=== PATIENT | male | born 1975 | race Caucasian/White ===

== ENCOUNTER 2016-09-07 05:37 | Emergency (ER) | payer OTHER ==
[~2016-09-07 05:37] MED LIST: CLEOCIN HCL300 MG PO; NORCO 10-325 T1 EACH PO
== END 2016-09-07 10:30 | disposition home or self-care (01) ==
LOC: ER1 05:37
DX: J84.112 Idiopathic pulmonary fibrosis (principal); R06.02 Shortness of breath
CPT/HCPCS: 96372; 99283; J1885

== ENCOUNTER 2016-09-12 09:27 | Emergency (ER) | payer OTHER ==
[2016-09-12 10:18] LABS: HEMOGLOBIN 11.7 gm/dl (14.0-17.5); RED BLOOD COUNT 4.27 M/UL (4.20-5.50); WHITE BLOOD COUNT 10.6 K/UL (4.5-11.0)
[2016-09-12 11:09] LABS: BUN/CREATININE RATIO 17 (0-10)
== END 2016-09-12 17:30 | disposition home or self-care (01) ==
LOC: ER1 09:27
PROVIDERS: Emergency Medicine
DX: K31.89 Other diseases of stomach and duodenum (principal); K22.8 Other specified diseases of esophagus; F17.200 Nicotine dependence, unspecified, uncomplicated; Z88.5 Allergy status to narcotic agent; Z79.891 Long term (current) use of opiate analgesic
CPT/HCPCS: 36415; 76870; 80053; 80307; 81001; 82150; 83690; 85025; 96365; 96375; 96376; 99284; C9113; J2270; J2550; J7030; J7050; Q9962

== ENCOUNTER 2016-09-20 13:47 | Emergency (ER) | payer OTHER ==
[2016-09-20 15:10] LABS: HEMOGLOBIN 12.5 gm/dl (14.0-17.5); RED BLOOD COUNT 4.55 M/UL (4.20-5.50); WHITE BLOOD COUNT 9.8 K/UL (4.5-11.0)
[2016-09-20 15:34] LABS: BUN/CREATININE RATIO 12 (0-10)
== END 2016-09-20 19:20 | disposition home or self-care (01) ==
LOC: ER1 13:47
PROVIDERS: Emergency Medicine
DX: R10.31 Right lower quadrant pain (principal); R10.32 Left lower quadrant pain; R31.9 Hematuria, unspecified; R11.0 Nausea; R19.7 Diarrhea, unspecified; R68.83 Chills (without fever); F17.200 Nicotine dependence, unspecified, uncomplicated
CPT/HCPCS: 36415; 80053; 81001; 82150; 83690; 85025; 96361; 96374; 96375; 99284

== ENCOUNTER 2016-09-25 18:54 | Emergency (ER) | payer OTHER ==
[2016-09-25 21:23] LABS: HEMOGLOBIN 12.9 gm/dl (14.0-17.5); RED BLOOD COUNT 4.67 M/UL (4.20-5.50); WHITE BLOOD COUNT 7.5 K/UL (4.5-11.0)
[2016-09-25 21:41] LABS: BUN/CREATININE RATIO 11 (0-10)
== END 2016-09-25 23:00 | disposition home or self-care (01) ==
LOC: ER1 18:54
PROVIDERS: Physician Assistant
DX: I95.1 Orthostatic hypotension (principal); G89.28 Other chronic postprocedural pain; M79.604 Pain in right leg; B19.20 Unspecified viral hepatitis C without hepatic coma; F17.210 Nicotine dependence, cigarettes, uncomplicated; Z88.5 Allergy status to narcotic agent; Z79.891 Long term (current) use of opiate analgesic
CPT/HCPCS: 36415; 73701; 80053; 85025; 86140; 87040; 93005; 96374; 96375; 99284; J2270; J2405; J7030; J7050; Q9962